=== PATIENT | female | born 1945 | race Caucasian/White ===

== ENCOUNTER 2018-12-19 15:03 | Inpatient (IN) ==
[2018-12-19] MEDS ORDERED: Nicotine 21 MG PATCH.TD24 TD PRN (22:59)
[2018-12-20 05:38] LABS: Basophils % 0.6 %; Eosinophils # 0.2 K/mcL (0.0-0.6); Hematocrit 39.1 % (35.3-44.9); Hemoglobin 12.3 g/dL (11.5-15.4); Immature Granulocytes % 0.2 % (0-4); Lymphocytes # 1.2 K/mcL (0.6-4.6); Lymphocytes % 26.2 %; Mean Corpuscular HGB Conc 31.5 g/dL (31.6-35.5); Mean Corpuscular Hemoglobin 30.1 pg (28.0-33.3); Mean Corpuscular Volume 95.8 fL (83.0-100.0); Mean Platelet Volume 10.6 fL (9.4-12.4); Monocytes # 0.3 K/mcL (0.0-1.3); Monocytes % 7.2 %; Neutrophils # 2.9 K/mcL (1.6-8.9); Platelet Count 182 K/mcL (140-400); Red Blood Count 4.08 M/mcL (3.82-4.97); Red Cell Distribution Width 13.6 % (11.5-14.5); Segmented Neutrophils % 61.8 %
[2018-12-20 05:42] LABS: Prothrombin Time 11.5 Seconds (9.4-12.1)
[2018-12-20 05:45] LABS: Activated Partial Thrombo Time 38.4 Seconds (26.0-36.0)
[2018-12-20 05:55] LABS: BUN/Creatinine Ratio 44 (6-26); Blood Urea Nitrogen 20 mg/dL (8-23); Calcium 8.5 mg/dL (8.6-10.3); Carbon Dioxide 27 mEq/L (23-29); Chloride 108 mEq/L (98-107); Glucose 100 mg/dL (70-105); Osmolality,Calculated 291 (280-300); Potassium 3.6 mEq/L (3.5-5.1); Sodium 139 mEq/L (136-145); eGFR For Non-African Americans > 60 (> 60)
[2018-12-20] MEDS: Aspirin 325 MG TABLET PO SCH (07:33)
--- NOTE | 2018-12-20 08:56 | Internal Med History&Physical ---
Date of Encounter: 12/20/18 Time of Encounter: 08:53 Assessment and Plan (1) CVA (cerebral vascular accident) Current visit: Yes Status: Acute Pt had ischemic stroke no clear evidence of embolic phenomena. It seems that she was started on Heparin and then later transferred to us on full dose of lovenox. I have reviewed the records sent with her, tried to call [facility] to find out more information but not successful . There is no evidence that there is embolic stroke . Seems more of ischemic . No need to be on full dose of anticoagulation as it could convert into bleed .Lovenox only for DVT prevention . She is also on plavix and Aspirin as well. Clinically stable. Qualifiers: Laterality of affected vessel: unspecified Qualified Code(s): I63.019 - Cerebral infarction due to thrombosis of unspecified vertebral artery (2) HTN (hypertension) Current visit: Yes Status: Chronic On meds conitnue present medication and adjust as needed Qualifiers: Hypertension type: essential hypertension Qualified Code(s): I10 - Essential (primary) hypertension Internal Medicine - H&P: HPI Admitted From: Hospital to Hospital Transfer ([facility]) History of present illness: Ms. Foote is a 73 year old female who was admitted to [facility] for weakness on her right side which started while she was at home . She was admitted to the hospital and was dx with CVA left hemisphere and was discharged for rehab . She had hx of HTN but denies any chest pain nausea vomiting or dirrhea she feels well overall without any complains no urinary complains ,blood in urine fever or chills . Slept well overnight . Past Med Surg Social Fam HX - Past Medical History Medical history: arthritis, COPD, GERD, hypertension, TIA Psychiatric history: no psych history - Past Surgical History Surgical History: cholecystectomy, hysterectomy, other Additional surgical history: bowel surgery - Social History Smoking Status: Current every day smoker Packs per day: 1 1/2 Smokeless Tobacco Status: Yes Alcohol use: none Drug use: none Internal Medicine - H&P: Meds Allergy/AdvReac Type Severity Reaction Status Date / Time codeine Allergy See Verified 12/19/18 22:32 Comments Penicillins Allergy See Verified 12/19/18 22:32 Comments All Systems PM: A 10-system review of systems was performed and is negative for pertinent findings except as documented above in the HPI. - Constitutional Constitutional: weakness, no anorexia, no chills, no excessive sweating, no fatigue, no falls, no weight gain - EENT Eyes: no diplopia, no discharge, no itchy eyes, no pain, no photophobia, no seeing flashes Nose, mouth and throat: no bleeding gums, no dysphagia, no odynophagia, no sore throat, no throat swelling - Cardiovascular Cardiovascular ROS IM: no chest pain, no claudication, no diaphoresis, no dyspnea, no dyspnea on exertion, no lightheadedness, no orthopnea, no palpi tations, no paroxysmal nocturnal dyspnea, no syncope - Respiratory Respiratory: no cough, no dyspnea, no hemoptysis, no pain on inspiration, no excessive phlegm production, no change in phlegm color, no pain with cough - Gastrointestinal Gastrointestinal: no belching, no bloating, no constipation, no cramping, no diarrhea, no heartburn, no hematemesis, no loose stools, no melena, no nausea, no odynophagia, no vomiting - Genitourinary Genitourinary: no difficulty urinating, no difficulty voiding, no dyspareunia, no dysuria, no nocturia - Musculoskeletal Musculoskeletal ROS IM: no back pain, no deformity, no joint swelling, no limited range of motion - Neurological Neurological ROS: focal weakness, weakness, no abnormal speech, no burning sensations, no confusion, no convulsions, no dizziness, no lack of coordination, no loss of vision, no numbness, no paresthesias, no radicular pain - Constitutional Vitals: Temp Pulse Resp BP Pulse Ox 97.5 F L 82 18 138/82 95 12/20/18 07:08 12/20/18 07:08 12/20/18 07:08 12/20/18 07:08 12/20/18 07:08 General appearance: Present: A&O X 3, morbidly obese, pleasant, answers questions appropriately - Head Head exam: Present: atraumatic - Eye Eye exam: Present: EOMI, PERRL. Absent: periorbital tenderness, scleral icterus Pupils: Present: PERRL - Neck Neck exam general surgery: Present: normal inspection, supple. Absent: t enderness, nuchal rigidity - Respiratory Respiratory exam: Present: CTAB. Absent: decreased breath sounds, respiratory distress, rhonchi, stridor, wheezes, tachypnea Additional comments: Air entry equal both sides no wheeze noted - Cardiovascular Cardiovascular exam: Present: RRR, +S1, +S2. Absent: irregular rhythm, JVD, systolic murmur - GI/Abdominal GI/Abdominal exam: Present: normal bowel sounds, soft. Absent: rigid, tenderness, no peritoneal signs Additional comments: obese - Extremities Exam Extremities exam: Absent: pedal edema, tenderness - Neurological Exam Neurological exam: Present: CN II-XII intact, oriented X3. Absent: facial droop, speech deficit Additional comments: Left 5/5 upper and lower right side Arm 4/5 and mildly weak as compared to left side leg is also 4/5 but little more weak as compared to her arm NO dysarthia noted . Internal Med - H&P Results - Labs CBC & Chem 7: 12/20/18 05:14 12/20/18 05:14 Labs: Short CBC 12/20/18 Range/Units 05:14 WBC 4.7 (4.3-11.1) K/mcL Hgb 12.3 (11.5-15.4) g/dL Hct 39.1 (35.3-44.9) % Plt Count 182 (140-400) K/mcL Neutrophils # 2.9 (1.6-8.9) K/mcL BMP 12/20/18 05:14 Sodium 139 Potassium 3.6 Chloride 108 H Carbon Dioxide 27 BUN 20 Creatinine 0.45 L Glucose 100 Calcium 8.5 L
[2018-12-21] MEDS: *HR* Enoxaparin 40 MG/0.4 ML SYRINGE SQ SCH (05:33)
[2018-12-21] MEDS: Aspirin 325 MG TABLET PO SCH (09:52)
--- NOTE | 2018-12-21 12:00 | Internal Med Progress Note ---
Addendum entered and electronically signed by Fred Conde MD 12/21/18 14:52: I have personally performed a face to face evaluation on this patient. I have r eviewed and agree with the care plan. History and Exam by me shows: Patient is without complaint. She states that she is doing well and wants to go home. In fact, within 30 seconds of needing her she asks calcium and I thought she could go home and I deferred to physical therapy. I told informed her that we would have a meeting with therapists, later today. Discussed care with other providers and/or nursing. Patient has no complaint of chest discomfort, dyspnea, orthopnea, palpitations, nausea or vomiting, constipation or diarrhea, other changes in bowel habits, difficulty with urination, rash or itching, or other new complaints, except as mentioned above. Review of systems is otherwise negative. Examination: (Except as mentioned above): General: In no apparent distress. Alert and oriented 3. Nondiaphoretic. Head: Atraumatic and normocephalic. Respiratory: No use of accessory muscles. Lungs are clear throughout. Normal airflow. Cardiovascular: Regular rate and rhythm without murmur appreciated. Abdomen: Bowel sounds are normal. No hepatosplenomegaly mass or tenderness appreciated. Obese and therefore difficult to palpate deeply. Patient is examined upright in chair and this also limits exam. Extremities: No cyanosis clubbing or change in edema. She has 1+ ankle edema bilaterally without cord or calf tenderness. Skin: Warm and non-diaphoretic with no new lesions noted. Therapy still feels that she needs instruction for safety and regaining strength. We will defer homegoing for a while. Original Note: Date of Encounter: 12/21/18 Time of Encounter: 11:58 - Assessment and plan (1) CVA (cerebral vascular accident) Current Visit: Yes Status: Acute Assessment and plan: Continue PT and OT. Will follow progress. Follow up with neurology as sc heduled. No new neurological deficits at this time. 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 Monitor blood pressure. Qualifiers: Hypertension type: essential hypertension Qualified Code(s): I10 - Essential (primary) hypertension - Time Spent With Patient 25 - 35 minutes - Subjective Interval history: Patient participating well with therapy. States that she is ready to go home and can do everything she needs to do and has 24 hour care with family that is able to help as they did prior to admission. Patient denies any new neurological deficits. States last bowel movement was 2 days ago. Denies fever, chills, nausea vomiting or diarrhea. Maintaining appetite and hydration. - Constitutional Vitals: Temp Pulse Resp BP Pulse Ox 98.0 F 91 16 136/84 96 12/21/18 06:54 12/21/18 09:30 12/21/18 09:30 12/21/18 09:30 12/21/18 09:30 General appearance: Present: A&O X 3, morbidly obese, pleasant, answers questions appropriately - Head Head exam: Present: atraumatic, normocephalic - Eye Eye exam: Present: PERRL, conjuntiva pink, sclera anicteric Pupils: Present: PERRL - Neck Neck exam general surgery: Present: supple, trachea midline. Absent: lympha denopathy - Respiratory Respiratory exam: Present: CTAB. Absent: accessory muscle use, rales, rhonchi, wheezes - Cardiovascular Cardiovascular exam: Present: RRR, +S1, +S2. Absent: diastolic murmur, gallop, rubs, systolic murmur - GI/Abdominal GI/Abdominal exam: Present: normal bowel sounds, soft, no peritoneal signs. Absent: distended, tenderness - Extremities Exam Extremities exam: Present: warm, radial pulses palpable and symmetrical. Absent: calf tenderness, cyanotic, pedal edema Additional comments: Weakness to bilateral lower extremities 3\5 - Neurological Exam Neurological exam: Present: CN II-XII intact, oriented X3, no focal deficits. Absent: pronater drift, facial droop, speech deficit - Skin Skin exam: Present: dry, intact Internal Medicine: Result - Labs CBC & Chem 7: 12/20/18 05:14 12/20/18 05:14 - ABG Interpretation ABG results: PT/INR, D-dimer PT 11.5 Seconds (9.4-12.1) 12/20/18 05:14 Consult Discharge Plan - Plan Referrals: Bakari Bateman [Primary Care Provider] -
[2018-12-22] MEDS: *HR* Enoxaparin 40 MG/0.4 ML SYRINGE SQ SCH (06:29)
[2018-12-22] MEDS: Aspirin 325 MG TABLET PO SCH (09:39)
--- NOTE | 2018-12-22 13:53 | Internal Med Progress Note ---
Addendum entered and electronically signed by Fred Conde MD 12/23/18 12:56: I have personally performed a face to face evaluation on this patient. I have r eviewed and agree with the care plan. History and Exam by me shows: The patient was evaluated by me yesterday but the note was not complete. This documentation is being completed today for that reason. Patient has no complaints and feels like she is participating well with therapy. Bowels have been functioning adequately and she has no other problems noted. Discussed care with other providers and/or nursing. Patient has no complaint of chest discomfort, dyspnea, orthopnea, palpitations, nausea or vomiting, constipation or diarrhea, other changes in bowel habits, difficulty with urination, rash or itching, or other new complaints, except as mentioned above. Review of systems is otherwise negative. Examination: (Except as mentioned above): General: In no apparent distress. Alert and oriented 3. Nondiaphoretic. Head: Atraumatic and normocephalic. Respiratory: No use of accessory muscles. Lungs are clear throughout. Normal airflow. Cardiovascular: Regular rate and rhythm without murmur appreciated. Abdomen: Bowel sounds are normal. No hepatosplenomegaly mass or tenderness appreciated. Obese and therefore difficult to palpate deeply. Patient is examined upright in chair and this also limits exam. Extremities: No cyanosis clubbing or edema. Skin: Warm and non-diaphoretic with no new lesions noted. Original Note: Date of Encounter: 12/22/18 Time of Encounter: 13:51 - Assessment and plan (1) CVA (cerebral vascular accident) Current Visit: Yes Status: Acute Assessment and plan: Continue PT and OT. Will follow progress. Follow up with neurology as scheduled. No new neurological deficits at this time. 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 Monitor blood pressure. Qualifiers: Hypertension type: essential hypertension Qualified Code(s): I10 - Essential (primary) hypertension - Time Spent With Patient less than 15 minutes - Subjective Interval history: Patient participating well with therapy. Patient denies any new neurological deficits. States last bowel movement was yesterday. Denies fever, chills, nausea vomiting or diarrhea. Maintaining appetite and hydration. - Constitutional Vitals: Temp Pulse Resp BP Pulse Ox 98.3 F 98 14 128/85 90 12/22/18 07:34 12/22/18 07:34 12/22/18 07:34 12/22/18 07:34 12/22/18 07:34 General appearance: Present: A&O X 3, morbidly obese, pleasant, answers questions appropriately - Head Head exam: Present: atraumatic, normocephalic - Eye Eye exam: Present: PERRL, conjuntiva pink, sclera anicteric Pupils: Present: PERRL - Neck Neck exam general surgery: Present: supple, trachea midline. Absent: lymphadenopathy - Respiratory Respiratory exam: Present: CTAB. Absent: accessory muscle use, rales, rhonchi, wheezes - Cardiovascular Cardiovascular exam: Present: RRR, +S1, +S2. Absent: diastolic murmur, gallop, rubs, systolic murmur - GI/Abdominal GI/Abdominal exam: Present: normal bowel sounds, soft, no peritoneal signs. Absent: distended, tenderness - Extremities Exam Extremities exam: Present: warm, radial pulses palpable and symmetrical. Absent: calf tenderness, cyanotic, pedal edema Additional comments: BLE strength 5/5 - Neurological Exam Neurological exam: Present: CN II-XII intact, oriented X3, no focal deficits. Absent: pronater drift, facial droop, speech deficit - Skin Skin exam: Present: dry, intact Internal Medicine: Result - Labs CBC & Chem 7: 12/20/18 05:14 12/20/18 05:14 - ABG Interpretation ABG results: PT/INR, D-dimer PT 11.5 Seconds (9.4-12.1) 12/20/18 05:14 Consult Discharge Plan - Plan Referrals: Bakari Bateman [Primary Care Provider] -
[2018-12-22] MEDS ORDERED: Melatonin 3 MG TABLET PO ONE (21:00)
[2018-12-23] MEDS: *HR* Enoxaparin 40 MG/0.4 ML SYRINGE SQ SCH (05:30)
[2018-12-23] MEDS: Aspirin 325 MG TABLET PO SCH (09:04)
--- NOTE | 2018-12-23 11:52 | Internal Med Progress Note ---
Addendum entered and electronically signed by Fred Conde MD 12/23/18 14:59: I have personally performed a face to face evaluation on this patient. I have r eviewed and agree with the care plan. History and Exam by me shows: Patient is doing well. She is stating that she has no problems with therapy. She denies weakness or change. In team staff meeting it was noted that she is little motivation to proceed with therapy and she has nearly everything done for her at home. Anticipated discharge is a week from today. Discussed care with other providers and/or nursing. Patient has no complaint of chest discomfort, dyspnea, orthopnea, palpitations, nausea or vomiting, constipation or diarrhea, other changes in bowel habits, difficulty with urination, rash or itching, or other new complaints, except as mentioned above. Review of systems is otherwise negative. Examination: (Except as mentioned above): General: In no apparent distress. Alert and oriented 3. Nondiaphoretic. Head: Atraumatic and normocephalic. Respiratory: No use of accessory muscles. Lungs are clear throughout. Normal airflow. Cardiovascular: Regular rate and rhythm without murmur appreciated. Abdomen: Bowel sounds are normal. No hepatosplenomegaly mass or tenderness appreciated. Obese and therefore difficult to palpate deeply. Extremities: No cyanosis clubbing or edema. Skin: Warm and non-diaphoretic with no new lesions noted. Original Note: Date of Encounter: 12/23/18 Time of Encounter: 11:50 - Assessment and plan (1) CVA (cerebral vascular accident) Current Visit: Yes Status: Acute Assessment and plan: Continue PT and OT. Will follow progress. Follow up with neurology as scheduled. No new neurological deficits at this time. 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 Monitor blood pressure. Qualifiers: Hypertension type: essential hypertension Qualified Code(s): I10 - Essential (primary) hypertension - Time Spent With Patient less than 15 minutes - Subjective Interval history: Patient participating well with therapy. Patient denies any new neurological deficits. States last bowel movement was 2 days ago. states it is normal for her to go 3 days without. Denies fever, chills, nausea vomiting or diarrhea. Maintaining appetite and hydration. - Constitutional Vitals: Temp Pulse Resp BP Pulse Ox 97.8 F 95 16 125/82 92 12/23/18 10:15 12/23/18 10:15 12/23/18 10:15 12/23/18 10:15 12/23/18 10:15 General appearance: Present: A&O X 3, morbidly obese, pleasant, answers questions appropriately - Head Head exam: Present: atraumatic, normocephalic - Eye Eye exam: Present: PERRL, conjuntiva pink, sclera anicteric Pupils: Present: PERRL - Neck Neck exam general surgery: Present: supple, trachea midline. Absent: lymphadenopathy - Respiratory Respiratory exam: Present: CTAB. Absent: accessory muscle use, rales, rhonchi, wheezes - Cardiovascular Cardiovascular exam: Present: RRR, +S1, +S2. Absent: diastolic murmur, gallop, rubs, systolic murmur - GI/Abdominal GI/Abdominal exam: Present: normal bowel sounds, soft, no peritoneal signs. Absent: distended, tenderness - Extremities Exam Extremities exam: Present: warm, radial pulses palpable and symmetrical. Absent: calf tenderness, cyanotic, pedal edema Additional comments: BLE strength 4/5 - Neurological Exam Neurological exam: Present: CN II-XII intact, oriented X3, no focal deficits. Absent: pronater drift, facial droop, speech deficit - Skin Skin exam: Present: dry, intact Internal Medicine: Result - Labs CBC & Chem 7: 12/20/18 05:14 12/20/18 05:14 - ABG Interpretation ABG results: PT/INR, D-dimer PT 11.5 Seconds (9.4-12.1) 12/20/18 05:14 Consult Discharge Plan - Plan Referrals: Bakari Bateman [Primary Care Provider] -
--- NOTE | 2018-12-23 15:54 | Psychological Evaluation ---
Date of Encounter: 12/23/18 Time of Encounter: 09:30 History of Present Illness History of present illness: Ms. Foote is a 73 year old female who was admitted to [facility] for weakness on her right side which started while she was at home . She was admitted to the hospital and was dx with CVA left hemisphere and was discharged for rehab . Past Medical History - Psychiatric History Psychiatric history: Reports: no psych history Home Medications and Allergies Allergy/AdvReac Type Severity Reaction Status Date / Time codeine Allergy See Verified 12/19/18 22:32 Comments Penicillins Allergy See Verified 12/19/18 22:32 Comments Social History - Social History Social History: Pt lives with 2 Adult daughters. She stated she does not like leaving her home and being around people. She has no hobbies and sleeps during the day and awake at night watching TV. Daughters appear to assist with much of pt's needs. 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 She is and additionally lost a granddaughter due to a MVA which she teared up about. She has an Associates degree in Nursing. - Tobacco Use Smoking Status: Current every day smoker - Alcohol Use Alcohol Use: none - Drug Use Drug Use: none Cognitive/Emotional Assessment - Cognitive Ability Abstract Thinking Ability: No Deficits Noted Attention Span Ability: Capable of Sustained Attention Verbal Communication Ability: Conversational Style Problem Solving Ability: Able To Solve Simple Problems Level of Alertness: Alert Memory Description: Recent Intact Orientation: Person, Place, Time Ability to Follow Directions: Good Speech Pattern: Normal rate, Normal rhythm, Appropriate Thought Process: Intact Calculations: Able to spell WORLD backw Additional Findings: gave up easily when perceived request was difficult. Knew pres, previous pres, governor. 5 digits forward and 2 backward. Counted 2 series of 3's from 20 then stated"I can't". - Emotional Status Mood Description: Anxious Affect Description: Flat Coping Ability: Unsure about ability to cope Assessment & Plan - Diagnosis (1) Adjustment disorder with anxiety - Prognosis Prognosis: Fair - Treatment Plan Treatment Plan/Recommendations: Will follow to assist with coping strategies for anxiety regarding changes since CVA. Next Session Date: 12/30/18 Procedures - Participants Therapy Participant: Patient - Session Time Session Start Time: 09:30 Session Stop Time: 10:00
[2018-12-23] MEDS: tiZANidine 4 MG TABLET PO PRN (22:15)
[2018-12-23] MEDS: Melatonin 3 MG TABLET PO PRN (22:15)
[2018-12-24] MEDS: *HR* Enoxaparin 40 MG/0.4 ML SYRINGE SQ SCH (04:31)
[2018-12-24] MEDS: Aspirin 325 MG TABLET PO SCH (08:19)
--- NOTE | 2018-12-24 12:56 | Internal Med Progress Note ---
Date of Encounter: 12/24/18 Time of Encounter: 12:54 - Assessment and plan (1) CVA (cerebral vascular accident) Current Visit: Yes Status: Acute Assessment and plan: She seems to be doing well with therapies. Actually, in comparing comments from her daughter, patient, and therapists, she is doing more heavy than she had been at home. Qualifiers: Laterality of affected vessel: unspecified Qualified Code(s): I63.019 - Cerebral infarction due to thrombosis of unspecified vertebral artery (2) HTN (hypertension) Current Visit: Yes Status: Chronic Assessment and plan: Clinically controlled; will follow. Qualifiers: Hypertension type: essential hypertension Qualified Code(s): I10 - Essential (primary) hypertension (3) Adjustment disorder with anxiety Current Visit: Yes Status: Acute Assessment and plan: See my comments and subjective. I feel that she has a depressed mood and might benefit from depression. We looked at an SSRI but this interacts with her melatonin. For this reason, we will use Lexapro. I told patient and daughter that this may take up to 2 weeks before she shows symptomatic benefit. (4) Constipation Current Visit: Yes Status: Acute Assessment and plan: I have encouraged the use of laxative. Will follow. Qualifiers: Constipation type: slow transit constipation Qualified Code(s): K59.01 - Slow transit constipation - Subjective Interval history: Patient has no complaints. She has no pain. She is pleased that her bowels are moving slightly but she needs something else. We had a discussion in front of her daughter which she admits to feeling that her memory is not good. We talked about her losses over the last 5 years. She is interested in trying an antidepressant as this might help her mood. Patient has no complaint of chest discomfort, dyspnea, orthopnea, palpitations, nausea or vomiting, constipation or diarrhea, other changes in bowel habits, difficulty with urination, rash or itching, or other new complaints, except as mentioned above. Review of systems is otherwise negative. I discussed management of her care with nursing staff. - Constitutional Vitals: Temp Pulse Resp BP Pulse Ox 98.0 F 92 16 138/86 91 12/24/18 07:50 12/24/18 07:50 12/24/18 07:50 12/24/18 07:50 12/24/18 07:50 Exam: Examination: (Except as mentioned above): General: In no apparent distress. Alert and oriented 3. Nondiaphoretic. Head: Atraumatic and normocephalic. Respiratory: No use of accessory muscles. Lungs are clear throughout. Normal airflow. Cardiovascular: Regular rate and rhythm without murmur appreciated. Abdomen: Bowel sounds are normal. No hepatosplenomegaly mass or tenderness appreciated. Obese and therefore difficult to palpate deeply. Patient is examined upright in chair and this also limits exam. Extremities: No cyanosis clubbing or edema. Skin: Warm and non-diaphoretic with no new lesions noted. Internal Medicine: Result - Labs CBC & Chem 7: 12/20/18 05:14 12/20/18 05:14 - ABG Interpretation ABG results: PT/INR, D-dimer PT 11.5 Seconds (9.4-12.1) 12/20/18 05:14 Consult Discharge Plan - Plan Referrals: Bakari Bateman [Primary Care Provider] -
[2018-12-24] MEDS: tiZANidine 4 MG TABLET PO PRN (21:58)
[2018-12-24] MEDS: Melatonin 3 MG TABLET PO PRN (21:58)
[2018-12-25] MEDS: *HR* Enoxaparin 40 MG/0.4 ML SYRINGE SQ SCH (05:48)
[2018-12-25] MEDS: Aspirin 325 MG TABLET PO SCH (10:02)
--- NOTE | 2018-12-25 10:06 | Internal Med Progress Note ---
Addendum entered and electronically signed by Fred Conde MD 12/25/18 13:50: I have personally performed a face to face evaluation on this patient. I have r eviewed and agree with the care plan. History and Exam by me shows: As noted, she finally had a bowel movement. However, she has difficulty in getting started and there was bright red blood associated. Apparently, this was from straining and/or from her constipation. She denies other problems or pain of any kind, etc. Discussed care with other providers and/or nursing. Patient has no complaint of chest discomfort, dyspnea, orthopnea, palpitations, nausea or vomiting, constipation or diarrhea, other changes in bowel habits, difficulty with urination, rash or itching, or other new complaints, except as mentioned above. Review of systems is otherwise negative. Examination: (Except as mentioned above): General: In no apparent distress. Alert and oriented 3. Nondiaphoretic. Head: Atraumatic and normocephalic. Respiratory: No use of accessory muscles. Lungs are clear throughout. Normal airflow. Cardiovascular: Regular rate and rhythm without murmur appreciated. Abdomen: Bowel sounds are normal. No hepatosplenomegaly mass or tenderness appreciated. Obese and therefore difficult to palpate deeply. Extremities: No cyanosis clubbing or edema. Skin: Warm and non-diaphoretic with no new lesions noted. Hematochezia: We will follow blood count, vital signs, nature her pro-time is not prolonged, etc. patient has been instructed to let us know if this recurs. If it resolves, I told her that this needs to be followed in the future with her family physician. Original Note: Date of Encounter: 12/25/18 Time of Encounter: 10:04 - Assessment and plan (1) CVA (cerebral vascular accident) Current Visit: Yes Status: Acute Assessment and plan: No acute issues. Patient continues with slight right hemiparesis. No acute focal neurological deficits noted on exam. Patient participating in physical therapy with much encouragement. Continue with current plan of care. 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 Patient's vital signs have remained stable. We will continue with current medications. Qualifiers: Hypertension type: essential hypertension Qualified Code(s): I10 - Essential (primary) hypertension (3) Adjustment disorder with anxiety Current Visit: Yes Status: Acute Assessment and plan: Patient continues with short-term memory issues. Patient has voiced desire to go home with her need to stay for therapy been reinforced through staff and family. After conversation patient agrees to stay but after several minutes later she forgets her conversation. Patient was started on a antidepressant yesterday - Time Spent With Patient less than 15 minutes - Subjective Interval history: Patient appears relaxed and currently denies any discomforts or shortness of b reath. Patient denies any productive cough. Patient states that therapy has been progressing well. - Constitutional Vitals: Temp Pulse Resp BP Pulse Ox 98.0 F 96 14 140/85 93 12/25/18 09:00 12/25/18 09:00 12/25/18 09:00 12/25/18 09:00 12/25/18 09:00 General appearance: Present: A&O X 3, morbidly obese, pleasant, answers questions appropriately - Head Head exam: Present: atraumatic, normocephalic - Eye Eye exam: Present: PERRL, conjuntiva pink, sclera anicteric Pupils: Present: PERRL - Neck Neck exam general surgery: Present: supple, trachea midline. Absent: lymphadenopathy - Respiratory Respiratory exam: Present: CTAB. Absent: accessory muscle use, rales, rhonchi, wheezes Additional comments: Lungs are clear throughout upper wright with fine basilar rales heard posteriorly. Respiratory effort appears relaxed. No productive cough noted. - Cardiovascular Cardiovascular exam: Present: RRR, +S1, +S2. Absent: diastolic murmur, gallop, rubs, systolic murmur - GI/Abdominal GI/Abdominal exam: Present: normal bowel sounds, soft, no peritoneal signs. Absent: distended, tenderness - Extremities Exam Extremities exam: Present: pedal edema, warm, radial pulses palpable and symmetrical. Absent: calf tenderness, cyanotic Additional comments: +1 pedal edema - Neurological Exam Neurological exam: Present: CN II-XII intact, oriented X3. Absent: pronater drift, facial droop, speech deficit Additional comments: Patient continues to have right hemiparesis with right extremities at 4/5 muscle strength for both proximal and distal on extension and flexion. Left extremities at 5/5 muscle strength. - Skin Skin exam: Present: dry, intact Internal Medicine: Result - Labs CBC & Chem 7: 12/20/18 05:14 12/20/18 05:14 - ABG Interpretation ABG results: PT/INR, D-dimer PT 11.5 Seconds (9.4-12.1) 12/20/18 05:14 Consult Discharge Plan - Plan Referrals: Bakari Bateman [Primary Care Provider] -
[2018-12-25 14:31] LABS: BUN/Creatinine Ratio 43 (6-26); Blood Urea Nitrogen 19 mg/dL (8-23); Calcium 8.8 mg/dL (8.6-10.3); Carbon Dioxide 26 mEq/L (23-29); Chloride 109 mEq/L (98-107); Glucose 104 mg/dL (70-105); Osmolality,Calculated 295 (280-300); Potassium 3.7 mEq/L (3.5-5.1); Sodium 141 mEq/L (136-145); eGFR For Non-African Americans > 60 (> 60)
[2018-12-25 14:53] LABS: Basophils % 0.6 %; Eosinophils # 0.2 K/mcL (0.0-0.6); Eosinophils % 2.8 %; Hematocrit 40.7 % (35.3-44.9); Hemoglobin 13.2 g/dL (11.5-15.4); Immature Granulocytes % 0.2 % (0-4); Lymphocytes # 1.2 K/mcL (0.6-4.6); Lymphocytes % 22.6 %; Mean Corpuscular HGB Conc 32.4 g/dL (31.6-35.5); Mean Corpuscular Hemoglobin 30.6 pg (28.0-33.3); Mean Corpuscular Volume 94.2 fL (83.0-100.0); Mean Platelet Volume 10.9 fL (9.4-12.4); Monocytes # 0.3 K/mcL (0.0-1.3); Monocytes % 6.4 %; Neutrophils # 3.6 K/mcL (1.6-8.9); Platelet Count 216 K/mcL (140-400); Red Blood Count 4.32 M/mcL (3.82-4.97); Red Cell Distribution Width 14.2 % (11.5-14.5); Segmented Neutrophils % 67.4 %
[2018-12-25 14:59] LABS: INR 1.1; Prothrombin Time 12.4 Seconds (9.4-12.1)
[2018-12-25] MEDS: tiZANidine 4 MG TABLET PO PRN (20:46)
[2018-12-25] MEDS: Melatonin 3 MG TABLET PO PRN (20:46)
[2018-12-25] MEDS: Sennosides 8.6 MG TABLET PO SCH (20:46)
[2018-12-26] MEDS: *HR* Enoxaparin 40 MG/0.4 ML SYRINGE SQ SCH (04:49)
[2018-12-26] MEDS: Sennosides 8.6 MG TABLET PO SCH ×2 (08:54→21:31)
[2018-12-26] MEDS: Aspirin 325 MG TABLET PO SCH (08:54)
--- NOTE | 2018-12-26 18:16 | Internal Med Progress Note ---
Date of Encounter: 12/26/18 Time of Encounter: 15:40 - Assessment and plan (1) CVA (cerebral vascular accident) Current Visit: Yes Status: Acute Assessment and plan: No acute issues. Patient participating in physical therapy with much encouragement. Continue with current plan of care. Qualifiers: Laterality of affected vessel: unspecified Qualified Code(s): I63.019 - C erebral infarction due to thrombosis of unspecified vertebral artery (2) HTN (hypertension) Current Visit: Yes Status: Chronic Assessment and plan: Continue current regimen. Qualifiers: Hypertension type: essential hypertension Qualified Code(s): I10 - Essential (primary) hypertension (3) Adjustment disorder with anxiety Current Visit: Yes Status: Acute Assessment and plan: Antidepressant started during this admission; continue to monitor. - Time Spent With Patient less than 15 minutes - Subjective Interval history: Feeling well. Right-sided weakness seems to be improving. No current concern. - Constitutional Vitals: Temp Pulse Resp BP Pulse Ox 98.1 F 88 14 144/84 91 12/26/18 07:38 12/26/18 07:38 12/26/18 07:38 12/26/18 07:38 12/26/18 07:38 General appearance: Present: A&O X 3, morbidly obese, pleasant, answers questions appropriately Exam: Gen: A&Ox3, NAD. HEENT: NCAT. Neck: No palpable lymphadenopathy or thyromegaly. CV: RRR, S1S2. 2/6, systolic murmur. Capillary refill < 2 seconds. Pulm: CTAB. Abd: (+)BS. NDNT. Neuro: Right-sided weakness, otherwise non-focal. Skin: No rash. Ext: No pitting edema. Internal Medicine: Result - Labs CBC & Chem 7: 12/25/18 13:54 12/25/18 13:54 - ABG Interpretation ABG results: PT/INR, D-dimer PT 12.4 Seconds (9.4-12.1) H 12/25/18 13:54 Consult Discharge Plan - Plan Referrals: Bakari Bateman [Primary Care Provider] -
[2018-12-26] MEDS: Melatonin 3 MG TABLET PO PRN (21:31)
[2018-12-26] MEDS: tiZANidine 4 MG TABLET PO PRN (21:32)
[2018-12-27] MEDS: *HR* Enoxaparin 40 MG/0.4 ML SYRINGE SQ SCH (05:04)
[2018-12-27] MEDS: Aspirin 325 MG TABLET PO SCH (08:55)
[2018-12-27] MEDS: Sennosides 8.6 MG TABLET PO SCH ×2 (08:55→21:51)
--- NOTE | 2018-12-27 14:01 | Internal Med Progress Note ---
Date of Encounter: 12/27/18 Time of Encounter: 14:00 - Assessment and plan (1) CVA (cerebral vascular accident) Current Visit: Yes Status: Acute Assessment and plan: No acute issues. Patient participating in physical therapy with much encouragement. Continue with current plan of care. Qualifiers: Laterality of affected vessel: unspecified Qualified Code(s): I63.019 - C erebral infarction due to thrombosis of unspecified vertebral artery (2) HTN (hypertension) Current Visit: Yes Status: Chronic Assessment and plan: Continue current regimen. Qualifiers: Hypertension type: essential hypertension Qualified Code(s): I10 - Essential (primary) hypertension (3) Adjustment disorder with anxiety Current Visit: Yes Status: Acute Assessment and plan: Antidepressant started during this admission; continue to monitor. - Time Spent With Patient less than 15 minutes - Subjective Interval history: Feeling well. No current concern. - Constitutional Vitals: Temp Pulse Resp BP Pulse Ox 98.0 F 85 16 147/82 94 12/27/18 07:38 12/27/18 07:38 12/27/18 07:38 12/27/18 07:38 12/27/18 07:38 General appearance: Present: A&O X 3, morbidly obese, pleasant, answers questions appropriately Exam: Gen: A&Ox3, NAD, obese. HEENT: NCAT. Neck: No palpable lymphadenopathy or thyromegaly. CV: RRR, S1S2. 2/6, systolic murmur. Capillary refill < 2 seconds. Pulm: CTAB. Abd: (+)BS. NDNT. Neuro: Right-sided weakness, otherwise non-focal. Skin: No rash. Ext: No pitting edema. Internal Medicine: Result - Labs CBC & Chem 7: 12/25/18 13:54 12/25/18 13:54 - ABG Interpretation ABG results: PT/INR, D-dimer PT 12.4 Seconds (9.4-12.1) H 12/25/18 13:54 Consult Discharge Plan - Plan Referrals: Bakari Bateman [Primary Care Provider] -
[2018-12-27] MEDS: tiZANidine 4 MG TABLET PO PRN (21:52)
[2018-12-28] MEDS: *HR* Enoxaparin 40 MG/0.4 ML SYRINGE SQ SCH (05:00)
[2018-12-28] MEDS: Sennosides 8.6 MG TABLET PO SCH ×2 (09:46→20:10)
[2018-12-28] MEDS: Aspirin 325 MG TABLET PO SCH (09:46)
--- NOTE | 2018-12-28 10:16 | Internal Med Progress Note ---
Addendum entered and electronically signed by Fred Conde MD 12/28/18 13:31: I have personally performed a face to face evaluation on this patient. I have r eviewed and agree with the care plan. History and Exam by me shows: Patient feels fine and denies complaints. Bowels and bladder are functioning well. She is pleased that her swelling has decreased slightly in her ankles. She is looking forward to going home in a couple of days. Discussed care with other providers and/or nursing. Patient has no complaint of chest discomfort, dyspnea, orthopnea, palpitations, nausea or vomiting, constipation or diarrhea, other changes in bowel habits, difficulty with urination, rash or itching, or other new complaints, except as mentioned above. Review of systems is otherwise negative. Examination: (Except as mentioned above): General: In no apparent distress. Alert and oriented 3. Nondiaphoretic. Head: Atraumatic and normocephalic. Respiratory: No use of accessory muscles. Lungs are clear throughout. Normal airflow. Cardiovascular: Regular rate and rhythm without murmur appreciated. Abdomen: Bowel sounds are normal. No hepatosplenomegaly mass or tenderness appreciated. Obese and therefore difficult to palpate deeply. Patient is examined upright in chair and this also limits exam. Extremities: No cyanosis clubbing or edema. Skin: Warm and non-diaphoretic with no new lesions noted. Original Note: Date of Encounter: 12/28/18 Time of Encounter: 10:15 - Assessment and plan (1) CVA (cerebral vascular accident) Current Visit: Yes Status: Acute Assessment and plan: Continue PT and OT. Will follow progress. Follow up with neurology as scheduled. No new neurological deficits at this time. 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 Monitor blood pressure. Qualifiers: Hypertension type: essential hypertension Qualified Code(s): I10 - Essential (primary) hypertension - Time Spent With Patient less than 15 minutes - Subjective Interval history: Patient participating well with therapy. Patient denies any new neurological deficits. Denies fever, chills, nausea vomiting or diarrhea. Maintaining appetite and hydration. - Constitutional Vitals: Temp Pulse Resp BP Pulse Ox 98.2 F 89 16 139/82 92 12/28/18 08:41 12/28/18 08:41 12/28/18 08:41 12/28/18 08:41 12/28/18 08:41 General appearance: Present: A&O X 3, morbidly obese, pleasant, answers questions appropriately - Head Head exam: Present: atraumatic, normocephalic - Eye Eye exam: Present: PERRL, conjuntiva pink, sclera anicteric Pupils: Present: PERRL - Neck Neck exam general surgery: Present: supple, trachea midline. Absent: lymphadenopathy - Respiratory Respiratory exam: Present: CTAB. Absent: accessory muscle use, rales, rhonchi, wheezes - Cardiovascular Cardiovascular exam: Present: RRR, +S1, +S2. Absent: diastolic murmur, gallop, rubs, systolic murmur - GI/Abdominal GI/Abdominal exam: Present: normal bowel sounds, soft, no peritoneal signs. Absent: distended, tenderness - Extremities Exam Extremities exam: Present: normal inspection, warm, radial pulses palpable and symmetrical. Absent: calf tenderness, cyanotic, pedal edema Additional comments: general weakness - Neurological Exam Neurological exam: Present: CN II-XII intact, oriented X3, no focal deficits. Absent: pronater drift, facial droop, speech deficit - Skin Skin exam: Present: dry, intact Additional comments: dry and scaley BLE. Internal Medicine: Result - Labs CBC & Chem 7: 12/25/18 13:54 12/25/18 13:54 - ABG Interpretation ABG results: PT/INR, D-dimer PT 12.4 Seconds (9.4-12.1) H 12/25/18 13:54 Consult Discharge Plan - Plan Referrals: Bakari Bateman [Primary Care Provider] -
[2018-12-28] MEDS: Melatonin 3 MG TABLET PO PRN (20:11)
[2018-12-28] MEDS: tiZANidine 4 MG TABLET PO PRN (20:11)
[2018-12-29] MEDS: *HR* Enoxaparin 40 MG/0.4 ML SYRINGE SQ SCH (05:49)
[2018-12-29] MEDS: Sennosides 8.6 MG TABLET PO SCH ×2 (07:58→20:34)
[2018-12-29] MEDS: Aspirin 325 MG TABLET PO SCH (07:58)
--- NOTE | 2018-12-29 11:23 | Internal Med Progress Note ---
Addendum entered and electronically signed by Fred Conde MD 12/29/18 11:46: I have personally performed a face to face evaluation on this patient. I have r eviewed and agree with the care plan. History and Exam by me shows: Patient has no complaints. She is moving her bowels well, per her report. She has no pain. She is pleased about going home tomorrrow. Discussed care with other providers and/or nursing. Patient has no complaint of chest discomfort, dyspnea, orthopnea, palpitations, nausea or vomiting, constipation or diarrhea, other changes in bowel habits, difficulty with urination, rash or itching, or other new complaints, except as mentioned above. Review of systems is otherwise negative. Examination: (Except as mentioned above): General: In no apparent distress. Alert and oriented 3. Nondiaphoretic. Head: Atraumatic and normocephalic. Respiratory: No use of accessory muscles. Lungs are clear throughout. Normal airflow. Cardiovascular: Regular rate and rhythm without murmur appreciated. Abdomen: Bowel sounds are normal. No hepatosplenomegaly mass or tenderness appreciated. Obese and therefore difficult to palpate deeply. Patient is examined upright in chair and this also limits exam. Extremities: No cyanosis clubbing or edema. Skin: Warm and non-diaphoretic with no new lesions noted. Original Note: Date of Encounter: 12/29/18 Time of Encounter: 11:21 - Assessment and plan (1) CVA (cerebral vascular accident) Current Visit: Yes Status: Acute Assessment and plan: No acute issues. Patient continues with slight right hemiparesis. No acute focal neurological deficits noted on exam. Patient participating in physical therapy with much encouragement. Continue with current plan of care. 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 Patient's vital signs have remained stable. We will continue with current medications. Qualifiers: Hypertension type: essential hypertension Qualified Code(s): I10 - Essential (primary) hypertension (3) Adjustment disorder with anxiety Current Visit: Yes Status: Acute Assessment and plan: Patient continues with short-term memory issues. Patient has voiced desire to go home with her need to stay for therapy been reinforced through staff and family. - Time Spent With Patient less than 15 minutes - Subjective Interval history: Patient appears relaxed and currently denies any discomforts or shortness of breath. Patient denies any productive cough. Patient states that therapy has been progressing well. Patient states that she will be discharging home tomorrow - Constitutional Vitals: Temp Pulse Resp BP Pulse Ox 97.9 F 87 16 134/83 92 12/29/18 07:11 12/29/18 07:11 12/29/18 07:11 12/29/18 07:11 12/29/18 07:11 General appearance: Present: A&O X 3, morbidly obese, pleasant, answers questions appropriately - Head Head exam: Present: atraumatic, normocephalic - Eye Eye exam: Present: PERRL, conjuntiva pink, sclera anicteric Pupils: Present: PERRL - Neck Neck exam general surgery: Present: supple, trachea midline. Absent: lympha denopathy - Respiratory Respiratory exam: Present: CTAB. Absent: accessory muscle use, rales, rhonchi, wheezes - Cardiovascular Cardiovascular exam: Present: RRR, +S1, +S2. Absent: diastolic murmur, gallop, rubs, systolic murmur - GI/Abdominal GI/Abdominal exam: Present: normal bowel sounds, soft, no peritoneal signs. Absent: distended, tenderness - Extremities Exam Extremities exam: Present: warm, radial pulses palpable and symmetrical. Absent: calf tenderness, cyanotic, pedal edema - Neurological Exam Neurological exam: Present: CN II-XII intact, oriented X3. Absent: pronater drift, facial droop, speech deficit Additional comments: No acute neurological deficits noted. Very slight weakness noted to right extremities, +4/5 to LE and RE at 5/5. - Skin Skin exam: Present: dry, intact Internal Medicine: Result - Labs CBC & Chem 7: 12/25/18 13:54 12/25/18 13:54 - ABG Interpretation ABG results: PT/INR, D-dimer PT 12.4 Seconds (9.4-12.1) H 12/25/18 13:54 Consult Discharge Plan - Plan Referrals: Bakari Bateman [Primary Care Provider] -
[2018-12-29] MEDS: Melatonin 3 MG TABLET PO PRN (20:34)
[2018-12-29] MEDS: tiZANidine 4 MG TABLET PO PRN (20:35)
[2018-12-30] MEDS: *HR* Enoxaparin 40 MG/0.4 ML SYRINGE SQ SCH (05:10)
[2018-12-30 07:31] VITALS: BP 136/84
--- NOTE | 2018-12-30 09:41 | Discharge Summary ---
Addendum entered and electronically signed by Fred Conde MD 12/30/18 11:24: I have personally performed a face to face evaluation on this patient. I have r eviewed and agree with the care plan. History and Exam by me shows: Patient is without complaint and excited to be going home. She has no questions. Neither does family. Bowels and bladder been functioning well and she has no other acute symptoms. Discussed care with other providers and/or nursing. Patient has no complaint of chest discomfort, dyspnea, orthopnea, palpitations, nausea or vomiting, constipation or diarrhea, other changes in bowel habits, difficulty with urination, rash or itching, or other new complaints, except as mentioned above. Review of systems is otherwise negative. Examination: (Except as mentioned above): General: In no apparent distress. Alert and oriented 3. Nondiaphoretic. Head: Atraumatic and normocephalic. Respiratory: No use of accessory muscles. Lungs are clear throughout. Normal airflow. Cardiovascular: Regular rate and rhythm without murmur appreciated. Abdomen: Bowel sounds are normal. No hepatosplenomegaly mass or tenderness appreciated. Obese and therefore difficult to palpate deeply. Patient is examined upright in chair and this also limits exam. Extremities: No cyanosis clubbing or edema. Skin: Warm and non-diaphoretic with no new lesions noted. Original Note: Date of Encounter: 12/30/18 Time of Encounter: 09:38 - Discharge Diagnosis (1) CVA (cerebral vascular accident) Priority: Primary Status: Acute Comments: Patient was admitted to our facility after being treated an [facility] for a left CVA , resulting in right hemiparesis. Patient has dissipated and physical therapy during her stay here and has progressed well with her right hemiparesis was resolving and currently at 4+/5 muscle strength. No other acute neurological deficits were noted during his stay here. Patient will continue with her physical therapy through home health services, to include occupational therapy and speech therapy. Patient is follow-up with neurology and PCP after discharge.. 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 Patient is to continue her home medications after discharge and follow-up with PCP. Qualifiers: Hypertension type: essential hypertension Qualified Code(s): I10 - Essential (primary) hypertension (3) Adjustment disorder with anxiety Priority: Secondary Status: Acute Comments: No acute issues during her stay. No behavior issues reported per nursing. Patient does have short-term memory loss and requires frequent reinforcement and cueing. Patient to continue all with PCP Hospital course: Ms. Foote is a 73 year old female, who was admitted to [facility] for weakness on her right side which started while she was at home . She was admitted to the hospital and was dx with CVA left hemisphere and was discharged for rehab . She had hx of HTN. Patient participated in physical therapy during her stay here and progressed well. Patient's right hemiparesis has mostly resolved with her muscle strength on right extremities and +4/5 muscle strength. No other acute neurological deficits noted. She does continue her physical therapy to home health services to include PT/OT/ST. Patient is recommended to follow-up with her PCP within 2 weeks and continue her scheduled follow-up with neurology. Discharge discussed with: patient Time spent discussing smoking cessation with patient: 3 to 10 minutes - Time Spent with Patient Total time spent providing and/or coordinating discharge services: Time spent: Less than 30 minutes - Discharge Medications Allergies/Adverse Reactions: Allergy/AdvReac Type Severity Reaction Status Date / Time codeine Allergy See Verified 12/19/18 22:32 Comments Penicillins Allergy See Verified 12/19/18 22:32 Comments Date of admission: 12/19/18 21:01 Primary care physician: Bakari Bateman Consults: 12/19/18 Consult to Loan Processor [CONS] Routine Reason for SW Consult: eval and treat 12/19/18 22:38 Consult to Occupational Therapy [CONS] Routine Comment: eval and treat Reason for Consult: eval and treat Does patient have active BEDREST order?: No Is patient medically & hemodynamically stable?: Yes Patient assessed for mobility or mobilized this visit?: No Consult to Physical Therapy [CONS] Routine Comment: eval and treat Reason for Consult: eval and treat Does patient have active BEDREST order?: No Is patient medically & hemodynamically stable?: Yes Patient assessed for mobility or mobilized this visit?: No Consult to Recreational Therapy [CONS] Routine Comment: 12/21/18 13:55 Consult to Speech Therapy [CONS] Routine Comment: Evaluate, develop and implement POC Reason for Consult: new cva Call Completed: Yes 12/22/18 13:52 Consult to Psychology [CONS] Routine Consulting Provider: Hedy Bee Reason for Consult: Possible depression; adjustment disorder Call Completed: No Discharging clinician: Fred Conde - Constitutional Vitals: Temp Pulse Resp BP Pulse Ox 97.9 F 87 17 136/84 91 12/30/18 07:12/30/18 07:12/30/18 07:12/30/18 07:12/30/18 07:26 General appearance: Present: A&O X 3, morbidly obese, pleasant, answers questions appropriately - Head Head exam: Present: atraumatic, normocephalic - Eye Eye exam: Present: PERRL, conjuntiva pink, sclera anicteric Pupils: Present: PERRL - Neck Neck exam general surgery: Present: supple, trachea midline. Absent: lymphadenopathy - Respiratory Respiratory exam: Present: decreased breath sounds, CTAB. Absent: accessory muscle use, rales, rhonchi, wheezes - Cardiovascular Cardiovascular exam: Present: RRR, +S1, +S2. Absent: diastolic murmur, gallop, rubs, systolic murmur - GI/Abdominal GI/Abdominal exam: Present: normal bowel sounds, soft, no peritoneal signs. Absent: distended, tenderness - Extremities Exam Extremities exam: Present: warm, radial pulses palpable and symmetrical. Absent: calf tenderness, cyanotic, pedal edema - Neurological Exam Neurological exam: Present: CN II-XII intact, oriented X3. Absent: pronater drift, facial droop, speech deficit Additional comments: slight right hemiparesis with RE +4/5 MS and LE 5/5 MS. - Skin Skin exam: Present: dry, intact - Patient Status Disposition: Home Health Service Condition: Good Functional capacity at discharge: uses cane/walker Overall status at discharge: patient is progressing back to baseline - Discharge Instructions Follow Up With: Bakari Bateman [Primary Care Provider] - - Diet and Activity Activity: ambulate only with your walker, as per physical therapy Diet: low fat, low cholesterol, low salt diet
[2018-12-30] MEDS: Aspirin 325 MG TABLET PO SCH (09:48)
[2018-12-30] MEDS: Sennosides 8.6 MG TABLET PO SCH (09:48)
--- NOTE | 2018-12-30 09:51 | Physician Discharge Referral ---
Addendum entered and electronically signed by Fred Conde MD 12/30/18 11:23: Original Note: Home Health/Hosp Referral Info Transfer to: Home Health Provider in Charge Post Discharge: PCP - Diagnosis (1) CVA (cerebral vascular accident) Priority: Primary Status: Acute (2) HTN (hypertension) Priority: Secondary Status: Chronic (3) Adjustment disorder with anxiety Priority: Secondary Status: Acute - Respiratory Orders Smoking Cessation: Smoking cessation has been advised. For more information, call the [place] Tobacco Quit Line at 7-596-KMVL-NOW. - Diet/Nutrition Diet/Nutrition Orders: No Added Salt (INDIGO), Cardiac - Activity Activity Orders: Up ad farshad, Walker - Services Needed Following services are medically necessary services: Nursing, Home Health Aide, Physical Therapy, Occupational Therapy, Speech Therapy - Transfer Medications Allergies/Adverse Reactions: Allergy/AdvReac Type Severity Reaction Status Date / Time codeine Allergy See Verified 12/19/18 22:32 Comments Penicillins Allergy See Verified 12/19/18 22:32 Comments Certification: Further, I certify that my clinical findings support that this patient is homebound (i.e. absences from home require considerable and taxing effort and are for medical reasons or yazidism services or infrequently or short duration when for other reasons) because: Homebound Reason: Leaving home requires considerable and taxing effort due to condition Attestation: My signature below is to certify that this patient is under my care and that I, or nurse practitioner, or a physician's front desk assistant working with me, has a [id number] encounter with this patient.
== END 2018-12-30 11:24 | disposition home health service (06) | DRG 57 ==
LOC: INPGRE 21:01